=== PATIENT | female | born 1995 | race African-American/Black ===

== ENCOUNTER 2017-03-11 12:14 | Emergency (ER) | payer OTHER ==
[~2017-03-11] VITALS: Ht 165.1 cm; Wt 79.8 kg
[2017-03-11 12:16] VITALS: BP 176/79
[2017-03-11] MEDS ORDERED: SUMAtriptan SUCCINATE 6 MG/0.5 ML VIAL SC ONE (12:45)
[2017-03-11] MEDS ORDERED: ONDANSETRON 4 MG ORAL DISINTEGRATING TAB (S0181) PO ONE (12:45)
[2017-03-11] MEDS ORDERED: ZOFR4TAB3 PO (12:47)
== END 2017-03-11 13:13 | disposition home or self-care (01) ==
LOC: M ED 12:41
DX: G43.909 Migraine, unspecified, not intractable, without status migrainosus (principal)

== ENCOUNTER 2017-06-11 18:22 | Emergency (ER) | payer OTHER ==
[~2017-06-11] VITALS: Ht 165.1 cm; Wt 80.9 kg
[~2017-06-11 18:22] MED LIST: ZOFR4TAB3 PO
[2017-06-11] MEDS ORDERED: PREN1PAK2 PO (18:32)
[2017-06-11] MEDS ORDERED: METOCLOPRAMIDE INJ 10MG/2ML VIAL (J2765) IV ONE (19:15)
[2017-06-11] MEDS ORDERED: NS 1,000 ML IV ONE ×2 (19:15→21:00)
[2017-06-11 19:27] LABS: BASO % 0.3 % (0.0-1.0); EOS # 0.3 K/mm3 (0.0-0.50); EOS % 2.4 % (0.0-3.0); LARGE UNSTAINED CELL # 0.2 K/mm3 (0.0-0.4); LARGE UNSTAINED CELL % 1.4 % (0.0-4.0); LYMPH # 2.3 K/mm3 (1.5-6.5); LYMPH % 19.6 % (24.0-44.0); MEAN CORPUSCULAR HEMOGLOBIN 22.9 pg (27.0-33.0); MEAN CORPUSCULAR HGB CONC 30.9 g/dl (32.0-36.5); MEAN CORPUSCULAR VOLUME 73.9 fl (80.0-96.0); MONO # 0.7 K/mm3 (0.0-0.8); MONO % 6.1 % (0.0-5.0); NEUTROPHILS # 7.7 K/mm3 (1.8-7.7); NEUTROPHILS % 70.2 % (36.0-66.0); PLATELET COUNT, AUTOMATED 202 k/mm3 (150-450); RED CELL DISTRIBUTION WIDTH 14.8 % (11.5-14.5)
[2017-06-11 19:47] LABS: ALBUMIN 3.4 GM/DL (3.2-5.2); ALBUMIN/GLOBULIN RATIO 1.06 (1.00-1.93); ALKALINE PHOSPHATASE 61 U/L (45-117); ALT/SGPT 19 U/L (12-78); AMYLASE 74 U/L (25-115); ANION GAP 10 MEQ/L (8-16); AST/SGOT 16 U/L (15-37); BILIRUBIN,DIRECT < 0.1 MG/DL (0.0-0.2); BILIRUBIN,TOTAL 0.2 MG/DL (0.2-1.0); BLOOD UREA NITROGEN 8 MG/DL (7-18); CARBON DIOXIDE LEVEL 26 MEQ/L (21-32); CHLORIDE LEVEL 104 MEQ/L (98-107); CREATININE FOR GFR 0.82 MG/DL (0.55-1.02); GLOMERULAR FILTRATION RATE > 60.0 (>60); GLUCOSE, FASTING 82 MG/DL (70-105); POTASSIUM SERUM 3.7 MEQ/L (3.5-5.1); SODIUM LEVEL 140 MEQ/L (136-145); TOTAL PROTEIN 6.6 GM/DL (6.4-8.2)
[2017-06-11] MEDS ORDERED: REGL10TA6 PO (21:24)
[2017-06-11 21:30] VITALS: BP 138/67
== END 2017-06-11 21:42 | disposition home or self-care (01) ==
LOC: M ED 18:22
DX: O21.9 Vomiting of pregnancy, unspecified (principal); R51 Headache; Z79.899 Other long term (current) drug therapy
CPT/HCPCS: 80048; 80076; 81001; 82150; 83690; 85025; 96361; 96374; 99283; J2765

== ENCOUNTER 2017-07-01 10:56 | Emergency (ER) | payer OTHER ==
[~2017-07-01] VITALS: Ht 165.1 cm; Wt 86.8 kg
[2017-07-01 10:56] VITALS: BP 123/68
[~2017-07-01 10:56] MED LIST changes: +PREN1PAK2 PO; +REGL10TA6 PO
[2017-07-01] MEDS ORDERED: METOCLOPRAMIDE 10 MG TAB PO ONE (11:30)
[2017-07-01] MEDS ORDERED: REGL10TA6 PO (11:31)
== END 2017-07-01 11:35 | disposition home or self-care (01) ==
LOC: M ED 10:56
DX: O21.9 Vomiting of pregnancy, unspecified (principal); Z3A.10 10 weeks gestation of pregnancy; O99.89 Other specified diseases and conditions complicating pregnancy, childbirth and the puerperium; R51 Headache; Z79.899 Other long term (current) drug therapy

== ENCOUNTER 2017-07-28 21:39 | Emergency (ER) | payer OTHER ==
[~2017-07-28] VITALS: Ht 165.1 cm; Wt 81.8 kg
[2017-07-29 01:13] VITALS: BP 125/71
[2017-07-29 02:11] LABS: BASO % 0.2 % (0.0-1.0); EOS # 0.1 K/mm3 (0.0-0.50); EOS % 0.7 % (0.0-3.0); LARGE UNSTAINED CELL # 0.2 K/mm3 (0.0-0.4); LARGE UNSTAINED CELL % 1.6 % (0.0-4.0); LYMPH # 2.2 K/mm3 (1.5-6.5); LYMPH % 18.7 % (24.0-44.0); MEAN CORPUSCULAR HEMOGLOBIN 23.7 pg (27.0-33.0); MEAN CORPUSCULAR HGB CONC 32.6 g/dl (32.0-36.5); MEAN CORPUSCULAR VOLUME 72.7 fl (80.0-96.0); MONO # 0.6 K/mm3 (0.0-0.8); MONO % 5.2 % (0.0-5.0); NEUTROPHILS # 8.7 K/mm3 (1.8-7.7); NEUTROPHILS % 73.6 % (36.0-66.0); PLATELET COUNT, AUTOMATED 196 k/mm3 (150-450); WHITE BLOOD COUNT 11.8 K/mm3 (4.0-10.0)
--- NOTE | 2017-07-29 02:40 | REPUSA ---
CLINICAL HISTORY: Vaginal spotting. TECHNIQUE: Transabdominal ultrasound of the pelvis was performed. FINDINGS: Single, live intrauterine gestation. The estimated gestation age is 30 weeks and 2 days. heart rate 147 beats per minute. No evidence of subchorionic hemorrhage. Anterior placenta. No evidence of placenta previa. Right corpus luteum cyst measuring 1.8 cm. Estimated delivery date on 02/01/2018. Estimated weight 74 g. IMPRESSION: Single, live intrauterine gestation. No abnormality is seen.
== END 2017-07-29 03:14 | disposition home or self-care (01) ==
LOC: M ED 21:39
DX: O20.0 Threatened abortion (principal); O99.89 Other specified diseases and conditions complicating pregnancy, childbirth and the puerperium; R51 Headache; Z3A.13 13 weeks gestation of pregnancy; Z79.899 Other long term (current) drug therapy

== ENCOUNTER 2017-08-16 15:11 | Emergency (ER) | payer OTHER ==
[~2017-08-16] VITALS: Ht 165.1 cm; Wt 83.2 kg
[2017-08-16 15:13] VITALS: BP 127/68
[2017-08-16] MEDS ORDERED: TYLE325T5 PO (15:20)
== END 2017-08-16 17:43 | disposition left against medical advice (07) ==
LOC: M ED 15:11
DX: R51 Headache (principal); Z3A.16 16 weeks gestation of pregnancy; Z53.21 Procedure and treatment not carried out due to patient leaving prior to being seen by health care provider

== ENCOUNTER 2017-10-11 07:20 | Emergency (ER) | payer OTHER ==
[~2017-10-11] VITALS: Ht 165.1 cm; Wt 90.8 kg
[~2017-10-11 07:20] MED LIST changes: +TYLE325T5 PO
[2017-10-11] MEDS ORDERED: FIOR1CAP PO (07:29)
[2017-10-11] MEDS ORDERED: prenatal vitamins PO (07:29)
[2017-10-11] MEDS ORDERED: TESS100C PO (08:55)
[2017-10-11 08:58] VITALS: BP 132/77
== END 2017-10-11 09:02 | disposition home or self-care (01) ==
LOC: M ED 07:20
DX: O99.512 Diseases of the respiratory system complicating pregnancy, second trimester (principal); Z3A.24 24 weeks gestation of pregnancy; Z79.899 Other long term (current) drug therapy